=== PATIENT | female | born 1975 | race African-American/Black ===

== ENCOUNTER 2018-03-27 20:26 | Emergency (ER) | payer SELFPAY ==
[~2018-03-27] VITALS: Ht 160 cm; Wt 59.0 kg
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
--- NOTE | 2018-03-27 21:09 | NUR ---
FOSTER PA AT BEDSIDE FOR EVAL.
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
[2018-03-27] MEDS ORDERED: HYDROCODONE/APAP 5/325MG 1 EACH TABLET PO ONE (21:30)
[2018-03-27] MEDS ORDERED: CYCLOBENZAPRINE 10 MG TABLET PO ONE (21:30)
[2018-03-27] MEDS ORDERED: HYDROCODONE/APAP 5/325MG 1 EACH TABLET ONE (22:11)
[2018-03-27] MEDS ORDERED: CYCLOBENZAPRINE 10 MG TABLET ONE (22:11)
--- NOTE | 2018-03-27 22:47 | NUR ---
Patient discharged to home in stable condition. Written and verbal after care instructions given. Patient verbalizes understanding of instruction.
[2018-03-27 22:52] VITALS: BP 113/65
== END 2018-03-27 22:52 | disposition home or self-care (01) ==
LOC: ER 20:33
DX: S16.1XXA Strain of muscle, fascia and tendon at neck level, initial encounter (principal); M25.512 Pain in left shoulder; Z60.2 Problems related to living alone; V49.49XA Driver injured in collision with other motor vehicles in traffic accident, initial encounter; Y93.89 Activity, other specified; Y92.413 State road as the place of occurrence of the external cause; Y99.8 Other external cause status
CPT/HCPCS: 72050; 73030; 99284; A4606; Z7610

== ENCOUNTER 2022-09-07 12:29 | Emergency (ER) | payer SELFPAY ==
[~2022-09-07] VITALS: Ht 160 cm; Wt 56.2 kg
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
--- NOTE | 2022-09-07 13:15 | NUR ---
SEEN BY DR. MOTLEY
[2022-09-07] MEDS ORDERED: ACETAMINOPHEN ES 500 MG TABLET ONE (13:26)
[2022-09-07] MEDS ORDERED: ACETAMINOPHEN 325 MG TABLET PO ONE (13:30)
--- NOTE | 2022-09-07 13:43 | NUR ---
TO CT SCAN
--- NOTE | 2022-09-07 14:20 | NUR ---
dineses pain looks comfortable
[2022-09-07] MEDS ORDERED: NAPR-1164 PO (15:13)
[2022-09-07] MEDS ORDERED: LIDO30AD10 TP (15:13)
--- NOTE | 2022-09-07 15:15 | NUR ---
Patient discharged to home in stable condition. Written and verbal after care instructions given. Patient verbalizes understanding of instruction.
[2022-09-07 15:21] VITALS: BP 116/63
== END 2022-09-07 15:22 | disposition home or self-care (01) ==
LOC: ER 12:33
DX: S20.212A Contusion of left front wall of thorax, initial encounter (principal); R51.9 Headache, unspecified; Z88.8 Allergy status to other drugs, medicaments and biological substances; Z60.2 Problems related to living alone; V89.2XXA Person injured in unspecified motor-vehicle accident, traffic, initial encounter; Y93.89 Activity, other specified; Y92.89 Other specified places as the place of occurrence of the external cause; Y99.8 Other external cause status
CPT/HCPCS: 70450-TC; 71100-TC; 73564-TC